=== PATIENT | female | born 1975 | race Caucasian/White ===

== ENCOUNTER 2017-09-10 09:21 | Emergency (ER) | payer OTHER ==
[~2017-09-10] VITALS: Ht 165.1 cm; Wt 64.9 kg
[2017-09-10] MEDS ORDERED: MEDROLPACK PO (10:44)
== END 2017-09-10 13:41 | disposition home or self-care (01) ==
LOC: ER 09:21
DX: M25.512 Pain in left shoulder (principal)

== ENCOUNTER 2021-01-17 20:04 | Emergency (ER) | payer OTHER ==
[~2021-01-17] VITALS: Ht 165.1 cm; Wt 74.8 kg
[~2021-01-17 20:04] MED LIST: MEDROLPACK PO
== END 2021-01-18 00:28 | disposition home or self-care (01) ==
LOC: ER 20:04
DX: S92.511A Displaced fracture of proximal phalanx of right lesser toe(s), initial encounter for closed fracture (principal); S90.31XA Contusion of right foot, initial encounter; W22.8XXA Striking against or struck by other objects, initial encounter; Y93.89 Activity, other specified; Y92.89 Other specified places as the place of occurrence of the external cause; Y99.8 Other external cause status